=== PATIENT | female | born 1960 | race Two or more races ===

== ENCOUNTER 2021-05-30 14:46 | Outpatient (CLI) | payer OTHER, SELFPAY ==
--- NOTE | ~2021-05-30 | MM_ITS ---
EXAMINATION: MM screening danilo BI w nova HISTORY: Screening mammogram TECHNIQUE: Craniocaudal and mediolateral oblique 3-D tomosynthesis images were obtained and synthetic 2-D images were generated. CAD analysis was submitted and interpreted. COMPARISON: No prior mammogram is available for comparison at this institution. BREAST PARENCHYMAL COMPOSITION: The breasts are heterogeneously dense, which may obscure small masses . FINDINGS: There is no evidence of suspicious mass, calcification, or architectural distortion to sugg est malignancy in either breast. IMPRESSION: 1. No mammographic evidence of malignancy. 2. Recommend routine screening mammography in one year. BI-RADS Category 1: Negative Reviewed, dictated and finalized at location A. 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
== END 2021-05-30 14:47 | disposition home or self-care (01) ==
LOC: ANHIMG 14:50
PROVIDERS: PCP Internal Medicine; Visit Provider Internal Medicine
DX: Z12.31 Encounter for screening mammogram for malignant neoplasm of breast (principal)
CPT/HCPCS: 77063; 77067

== ENCOUNTER 2022-02-21 16:37 | Outpatient (CLI) | payer OTHER, SELFPAY ==
--- NOTE | ~2022-02-21 | DEXA_ITS ---
Bone Density Report Name: AURORA CASEY Age: 61 Sex: Female Ethnicity: Date of : 1960 Indication: postmenopausal; screening for osteoporosis; height loss; Referring Provider: AJIT, SAMMY Barcenas Study: Bone densitometry was performed. Exam Date: February 21, 2022 Accession number: [id number] Bone Density: Region BMD T-score Z-score Classification AP Spine(L1-L4) 0.802 -2.2 -0.8 Osteopenia Femoral Neck (Left) 0.608 -2.2 -0.9 Osteopenia Total Hip (Left) 0.830 -0.9 0.0 Normal Femoral Neck (Right) 0.631 -2.0 -0.7 Osteopenia Total Hip (Right) 0.846 -0.8 0.2 Normal Total Hip Mean 0.838 -0.9 0.1 Normal World Health Organization criteria for BMD impression classify patients as: Normal (T-score at or above -1.0), Osteopenia (T-score between -1.0 and -2.5), or Osteoporosis (T-score at or below -2.5). 10-year Fracture Risk(1): Major Osteoporotic Fracture 5.4% Hip Fracture 0.8% Reported Risk Factors: [place] (), Neck BMD=0.608, BMI=23.8 (1) FRAX(R) Version 3.08. Fracture probability calculated for an untreated patient. Fracture probability may be lower if the patient has received treatment. Clinical Information Provided by Patient: Patient maximum height was 60 Menopause Age: 51 Does not regularly consume dairy products Drinks caffeinated beverages Onset of menses at age 15 Number of children 1 Impression: The patient has low bone mass, based on the Total Spine T-score. The patient has an estimated ten-year risk of hip fracture of 0.8% and an estimated ten-year risk of major fracture of 5.4%, based on the WHO FRAX algorithm. Discussion: BONE DENSITY IS LOW AT ONE OR MORE SKELETAL SITES. This patient's lowest T-score is low at one or more skeletal sites. It meets the World Health Organization's (WHO) criteria for ?low bone mass? (T-score between -1.0 and -2.5). The patient's 10-year risk of fracture as calculated by FRAX is less than the threshold where pharmacological therapy is recommended by the National Osteoporosis Foundation (NOF). However, all treatment decisions require clinical judgment and consideration of individual patient factors, including patient preferences, comorbidities, previous drug use, risk factors not captured in the FRAX model (e.g., frailty, falls, vitamin D deficiency, increased bone turnover, interval significant decline in bone density) and possible under or overestimation of fracture risk by FRAX. The patient should follow a healthful lifestyle (good nutrition with adequate calcium and vitamin D, and appropriate weight-bearing exercise). Follow-Up: Consider repeating this study in 2 to 3 years to reassess this patient's status, or sooner if there is some new clinical indication. Reported by: PREETI on 02/21/2022 5:05:00 PM.
== END 2022-02-21 16:38 | disposition home or self-care (01) ==
PROVIDERS: PCP Internal Medicine; Visit Provider Internal Medicine
DX: Z78.0 Asymptomatic menopausal state (principal); M85.89 Other specified disorders of bone density and structure, multiple sites
CPT/HCPCS: 77080

== ENCOUNTER 2023-01-05 17:53 | Emergency (ER) | payer OTHER, SELFPAY ==
[2023-01-05 17:59] VITALS: BP 200/79; PULSE 71; RESP 16; O2SAT 100
--- NOTE | 2023-01-05 18:29 | ECG_ITS ---
Measurements Intervals [place] Rate: 63 P: 51 MS: 154 QRS: 14 QRSD: 82 T: 27 QT: 385 QTc: 396 Interpretive Statements SINUS RHYTHM LOW QRS VOLTAGE IN PRECORDIAL LEADS [QRS DEFLECTION < 1.0 mV IN CHEST LEADS] ABNORMAL ECG NO PREVIOUS ECG AVAILABLE FOR COMPARISON Electronically Signed On 01-06-2023 8:28:41 CDT by Fer Garrido M.D.
--- NOTE | 2023-01-05 18:31 | ED.RECABL ---
HPI - Recheck/Abnormal Lab/Rx General Chief Complaint: Recheck/Abnormal Lab/Rx Stated Complaint: htn Time Seen by Provider: 01/05/23 18:28 Source: patient Mode of arrival: ambulatory Limitations: no limitations History of Present Illness HPI narrative: Patient is a 62-year-old female who denies any past medical history who presents emergency department today from the urgent care for evaluation of elevated blood pressure and having blood to outer part of her right eye. she state she is under a lot of stress. she denies any recent head injury or fall. she denies having diagnosed HTN or taking any medications for HTN. she states she has had some dizziness at times but thinks it is due to not eating regularly. she is very busy at work she states. family member at bedside. patient also has had left sided chest pain to her left arm. she currently denies any chest pain or shortness of breath. denies any recent travel, prolonged periods of immobilization, hx of DVT or PE, vision changes, nausea, vomiting, numbness/tingling to upper or lower extremities, fever, chills, gait difficulty, or any other symptoms Related Data Allergies Allergy/AdvReac Type Severity Reaction Status Date / Time No Known Allergies Allergy Unverified 06/26/17 16:40 Review of Systems Review of Systems: CONSTITUTIONAL: Denies fever, chills, or sweats. EYES: Denies visual changes, discharge. blood to the right eye. ENT: Denies rhinorrhea, congestion, sore throat, or otalgia. CARDIOVASCULAR: chronic chest pain to left side of chest- currently denies chest pain, palpitations, or edema. RESPIRATORY: Denies cough or dyspnea. GASTROINTESTINAL: Denies abdominal pain, nausea, vomiting, or diarrhea. GENITOURINARY: Denies dysuria or hematuria. SKIN: Denies rash or itching. MUSCULOSKELETAL: Denies back pain, joint pain, or myalgia. NEUROLOGIC: intermittent dizziness-none currently Denies headache, numbness, or weakness. PSYCHIATRIC: Denies anxiety or depression. a lot of stress at home All systems reviewed & are unremarkable except as noted in HPI and below Exam Narrative: GENERAL: Well-appearing, well-nourished, and in no acute distress. HEAD: Normocephalic, atraumatic. EYES: PERRLA and EOMI. there is subconjunctival hemorrhage to the outer aspect of right eye. no visual deficit. ENT: Nares clear, no rhinorrhea or epistaxis. Mucous membranes moist. NECK: Supple. CHEST: Clear to auscultation. No respiratory distress. HEART: Regular rate and rhythm. No murmur heard. Normal peripheral pulses. ABDOMEN: Soft, nontender, nondistended, normal active bowel sounds. EXTREMITIES: Normal range of motion. No edema. SKIN: Warm, dry, no rash. NEURO: No focal deficits. Alert and oriented x3. UE and LE distal pulses, sensation, cap refill, temperature, patellar reflex and strength intact and equal bilaterally.cranial nerves II-XII grossly intact, steady gait. negative Romberg PSYCH: Normal mood and affect. Course Vital Signs Vital signs: Vital Signs Pulse Rate 71 01/05/23 17:59 Respiratory Rate 16 01/05/23 17:59 Blood Pressure 200/79 H 01/05/23 17:59 Pulse Oximetry 100 01/05/23 17:59 Oxygen Delivery Room Air 01/05/23 17:59 Temperature 97.4 F L 01/05/23 19:28 Pulse Rate 78 01/05/23 21:04 Respiratory Rate 16 01/05/23 21:04 Blood Pressure 162/86 H 01/05/23 21:04 Pulse Oximetry 99 01/05/23 21:04 Oxygen Delivery Room Air 01/05/23 17:59 MDM - Recheck/Abnormal Lab/Rx MDM Narrative Medical decision making narrative: Patient presents for elevated blood pressure without diagnosis of hypertension. Also an area of bleeding to her right eye. Patient's blood pressure was elevated when she 1st arrived 200/79 however did improve to 140s over 70s. She has no known diagnosis of hypertension. She is under lot of stress. She had some complaints of chest pain for the last few months and nausea as well as dizziness but continued to contribut
[2023-01-05 19:27] LABS: Basophils Absolute Auto 0.1 K/mm3 (0.0-0.1); Basophils Percent Auto 1.1 % (0.2-1.2); Eosinophils Absolute Auto 0.1 K/mm3 (0-0.3); Eosinophils Percent Auto 1.3 % (0-4.4); Hematocrit 43.1 % (37.0-47.0); Hemoglobin 14.1 g/dL (12.0-15.0); Immature Granulocyte Absolute 0.01 K/mm3 (0.00-0.031); Immature Granulocyte Percent A 0.2 % (0-0.5); Lymphocytes Absolute Auto 2.53 K/mm3 (0.9-3.2); Lymphocytes Percent Auto 47.1 % (18.3-44.2); Mean Corpuscular HGB Conc 32.7 g/dl (32-36); Mean Corpuscular Hemoglobin 30.7 pg (26-34); Mean Corpuscular Volume 93.9 fl (80-100); Mean Platelet Volume 9.2 fl (7.4-10.4); Monocytes Absolute Auto 0.4 K/mm3 (0.1-0.6); Monocytes Percent Auto 6.7 % (2.6-8.5); Neutrophils Absolute Auto 2.3 K/mm3 (1.3-6.7); Neutrophils Percent Auto 43.6 % (45.5-73.1); Platelet Count Result 272 k/mm3 (150-375); Red Blood Count 4.59 M/mm3 (4.2-5.4); Red Cell Distribution Width 12.6 % (11.5-14.5); White Blood Count 5.4 K/mm3 (4.5-10.0)
[2023-01-05 19:28] VITALS: BP 160/66; PULSE 63; RESP 15; TEMP 36.3; O2SAT 100
[2023-01-05 19:59] LABS: Troponin I < 0.012 ng/mL (0.000-0.034)
[2023-01-05 20:06] VITALS: BP 152/80; PULSE 60; RESP 13; O2SAT 100
[2023-01-05 21:04] VITALS: BP 162/86; PULSE 78; RESP 16; O2SAT 99
[2023-01-05 21:17] LABS: Alanine Aminotransferase 32 U/L (6-35); Albumin Level 4.3 g/dL (3.5-5.1); Alkaline Phosphatase 74 U/L (38-126); Anion Gap 4 mmol/L (8-16); Aspartate Amino Transferase 35 U/L (14-36); Bilirubin,Total 0.6 mg/dL (0.2-1.3); Blood Urea Nitrogen 12 mg/dL (7-17); Carbon Dioxide 27 mmol/L (22-30); Chloride 105 mmol/L (98-107); Estimated CRCL calculation 52 ml/min; Estimated Glomerular Filt Rate > 60; Glucose 94 mg/dL (65-110); Potassium 3.9 mmol/L (3.4-5.0); Sodium 136 mmol/L (137-145)
== END 2023-01-05 21:05 | disposition home or self-care (01) ==
PROVIDERS: Emergency Provider Nurse Practitioner; PCP Internal Medicine
DX: R03.0 Elevated blood-pressure reading, without diagnosis of hypertension (principal); F43.9 Reaction to severe stress, unspecified; R94.31 Abnormal electrocardiogram [ECG] [EKG]
CPT/HCPCS: 36415; 80053; 84484; 85025; 93005; 99284

== ENCOUNTER 2023-02-21 08:15 | Outpatient (CLI) | payer OTHER, SELFPAY ==
[2023-02-21 12:16] LABS: Cholesterol 254 mg/dL (0-200); HDL Direct 68 mg/dL; Triglycerides 148 mg/dL (<150)
[2023-02-21 12:27] LABS: LDL Cholesterol Direct 144 mg/dL
== END 2023-02-21 08:16 | disposition home or self-care (01) ==
LOC: ANHGOSHLAB 08:16
PROVIDERS: PCP Internal Medicine; Visit Provider Emergency Medicine
DX: I10 Essential (primary) hypertension (principal)
CPT/HCPCS: 36415; 80061

== ENCOUNTER 2024-02-19 08:36 | Outpatient (CLI) | payer OTHER, SELFPAY ==
--- NOTE | ~2024-02-19 | MM_ITS ---
EXAMINATION: MM screening danilo BI w nova HISTORY: Screening mammogram TECHNIQUE: Craniocaudal and mediolateral oblique 3-D tomosynthesis images were obtained and synthetic 2-D images were generated. CAD analysis was submitted and interpreted. COMPARISON: 05/30/2021 BREAST PARENCHYMAL COMPOSITION:Dense: The breasts are heterogeneously dense, which may obscure small masses. FINDINGS: No suspicious mass, calcification, or architectural distortion are identified in either yusra ast to suggest malignancy. There has been no suspicious interval change. IMPRESSION: No mammographic evidence of malignancy. Recommend routine screening mammography in one year. BI-RADS Category 1: Negative Reviewed, dictated and finalized at location . LINE REPAIRER
== END 2024-02-19 08:37 | disposition home or self-care (01) ==
LOC: ANHIMG 08:38
PROVIDERS: PCP Emergency Medicine; Visit Provider Emergency Medicine
DX: Z12.31 Encounter for screening mammogram for malignant neoplasm of breast (principal)
CPT/HCPCS: 77063; 77067